=== PATIENT | male | born 1965 | race Caucasian/White ===

== ENCOUNTER 2021-12-04 20:17 | Inpatient (IN) ==
[2021-12-04 20:50] LABS: Basophils % 0.4 %; Eosinophils % 0.2 %; Hematocrit 45.2 % (37.5-50.1); Hemoglobin 13.7 g/dL (12.9-16.9); Immature Granulocytes % 0.5 % (0-4); Lymphocytes # 2.1 K/mcL (0.6-4.6); Mean Corpuscular HGB Conc 30.3 g/dL (31.6-35.5); Mean Corpuscular Hemoglobin 26.5 pg (28.0-33.3); Mean Corpuscular Volume 87.4 fL (83.0-100.0); Mean Platelet Volume 10.9 fL (9.4-12.4); Monocytes # 0.8 K/mcL (0.0-1.3); Monocytes % 7.1 %; Neutrophils # 7.9 K/mcL (1.6-8.9); Nucleated Red Blood Cells 0.3 /100 WBC (0); Platelet Count 282 K/mcL (140-400); Red Blood Count 5.17 M/mcL (4.19-5.50); Red Cell Distribution Width 18.6 % (11.5-14.5); Segmented Neutrophils % 72.8 %; White Blood Count 10.8 K/mcL (4.3-11.1)
[2021-12-04 20:58] LABS: INR 1.9; Prothrombin Time 21.4 Seconds (9.4-12.1)
[2021-12-04 21:00] LABS: Activated Partial Thrombo Time 42.3 Seconds (26.0-36.0)
[2021-12-04 21:06] LABS: Alanine Aminotransferase 28 Units/L (7-52); Albumin 3.2 g/dL (3.5-5.7); Albumin/Globulin Ratio 1.1 (1.1-2.2); Alkaline Phosphatase 313 Units/L (34-104); Aspartate Amino Transferase 30 Units/L (13-39); BUN/Creatinine Ratio 20 (6-26); Bilirubin,Total 2.3 mg/dL (0.3-1.0); Blood Urea Nitrogen 28 mg/dL (6-20); Carbon Dioxide 26 mEq/L (23-29); Chloride 98 mEq/L (98-107); Glucose 83 mg/dL (70-105); Magnesium 2.3 mg/dL (1.6-2.6); Osmolality,Calculated 287 (280-300); Potassium 5.3 mEq/L (3.5-5.1); Sodium 136 mEq/L (136-145); Total Protein 6.2 g/dL (6.4-8.9); eGFR For African Americans > 60 (> 60); eGFR For Non-African Americans 51 (> 60)
[2021-12-04 21:16] LABS: Troponin I 0.04 ng/mL (< 0.04)
[2021-12-04] MEDS ORDERED: Silver Sulfadiazine 50 GM TUBE TP ONE (22:54)
[2021-12-04] MEDS ORDERED: Furosemide 40 MG/4 ML VIAL IVP ONE (22:54)
[2021-12-05] MEDS ORDERED: Acetaminophen 325 MG TABLET PO PRN (02:01)
[2021-12-05] MEDS ORDERED: Melatonin 3 MG TABLET PO PRN (02:01)
[2021-12-05] MEDS ORDERED: Naloxone 0.4 MG/ML INJ IVP PRN (02:01)
[2021-12-05 03:36] LABS: INR 1.9; Prothrombin Time 21.5 Seconds (9.4-12.1)
[2021-12-05 03:41] LABS: Hematocrit 44.6 % (37.5-50.1); Hemoglobin 13.5 g/dL (12.9-16.9); Mean Corpuscular HGB Conc 30.3 g/dL (31.6-35.5); Mean Corpuscular Hemoglobin 26.3 pg (28.0-33.3); Mean Corpuscular Volume 86.8 fL (83.0-100.0); Mean Platelet Volume 11.3 fL (9.4-12.4); Platelet Count 311 K/mcL (140-400); Red Blood Count 5.14 M/mcL (4.19-5.50); Red Cell Distribution Width 18.7 % (11.5-14.5); White Blood Count 11.7 K/mcL (4.3-11.1)
[2021-12-05] MEDS ORDERED: *HR* LORazepam 0.5 MG TABLET PO PRN ×2 (04:13→13:45)
[2021-12-05 04:29] LABS: Albumin 3.2 g/dL (3.5-5.7); Albumin/Globulin Ratio 1.1 (1.1-2.2); Bilirubin,Total 2.5 mg/dL (0.3-1.0); Calcium 9.3 mg/dL (8.6-10.3); Chol/HDL Ratio 3.4 (0-4.9); Magnesium 2.3 mg/dL (1.6-2.6); Phosphorous 4.3 mg/dL (2.7-4.5); Potassium 5.3 mEq/L (3.5-5.1); Total Protein 6.2 g/dL (6.4-8.9)
[2021-12-05] MEDS: Ipratropium/Albuterol Neb 3 ML IH SCH ×3 (05:09→09:38)
[2021-12-05] MEDS ORDERED: SODIUM ZIRCONIUM CYCLOSILICATE 5 GM POWD.PACK PO ONE (05:14)
[2021-12-05] MEDS: Ondansetron 4 MG/2 ML VIAL IVP PRN ×2 (07:40→22:32)
[2021-12-05] MEDS ORDERED: Furosemide 40 MG/4 ML VIAL IVP SCH (09:00)
[2021-12-05] MEDS: Budesonide/Formoterol 160/4.5 1 PUFF INH IH SCH ×2 (09:38→22:30)
[2021-12-05] MEDS ORDERED: D5% in Water 1,000 ML IVC PRN (10:42)
[2021-12-05] MEDS ORDERED: *HR* Dextrose 50 % in Water (Syg) 50 ML SYRINGE IVP PRN (10:42)
[2021-12-05] MEDS ORDERED: Dextrose Gel 15 GM/37.5 ML TUBE PO PRN ×2 (10:42)
[2021-12-05] MEDS ORDERED: Gabapentin 400 MG CAPSULE PO PRN (13:45)
[2021-12-05] MEDS ORDERED: Perflutren Lipid Microsphere 1.3 ML in 0.9 % Sodium Chloride 8.7 ML IVP PRN (13:47)
[2021-12-05] MEDS ORDERED: Famotidine 20 MG TABLET PO SCH (14:00)
[2021-12-05] MEDS ORDERED: Metoprolol XL (24 HR) Succ 25 MG TAB.ER.24H PO SCH (14:00)
[2021-12-05] MEDS ORDERED: Acetaminophen/Butalbital/CaffeineTABLET PO PRN (14:06)
[2021-12-05] MEDS ORDERED: haloperidoL 1 MG TABLET PO PRN (14:11)
[2021-12-05] MEDS ORDERED: Ipratropium/Albuterol Neb 3 ML IH PRN (15:23)
[2021-12-05] MEDS: hydrOXYzine pamoate 25 MG CAPSULE PO SCH ×2 (17:47→20:48)
[2021-12-05] MEDS: Furosemide 20 MG/2 ML VIAL IVP SCH (17:48)
[2021-12-05] MEDS ORDERED: Warfarin perPT PO PRN (18:00)
[2021-12-05] MEDS ORDERED: *HR* Warfarin 3 MG TABLET PO ONE (18:00)
[2021-12-05] MEDS: Piperacillin/Tazobactam 3.375 GM in 0.9 % Sodium Chloride Mini Bag 100 ML IVPB SCH (18:07)
[2021-12-05] MEDS ORDERED: Insulin LISPRO 300 UNITS/3 ML VIAL SUBQ SCH (21:00)
[2021-12-06] MEDS: Furosemide 20 MG/2 ML VIAL IVP SCH (00:56)
[2021-12-06] MEDS: Piperacillin/Tazobactam 3.375 GM in 0.9 % Sodium Chloride Mini Bag 100 ML IVPB SCH (00:56)
[2021-12-06 02:37] LABS: ABG Base Excess -6 mEq/L (-2 to 3); ABG HCO3 21 mEq/L (21-27); ABG Oxygen Saturation 97 % (95-98); ABG PCO2 43 mmHg (35-45); ABG PH 7.29 pH Units (7.32-7.45); ABG PO2 99 mmHg (85-104); ABG TCO2 22 mEq/L (20-26); Blood Gas Modality ASSIST CONTROL; Blood Gas VT 500 cc
[2021-12-06 02:50] VITALS: RESP 16
[2021-12-06 04:33] VITALS: O2SAT 100
[2021-12-06] MEDS ORDERED: *HR* Rocuronium Bromide 50 MG/5 ML VIAL IVP ONE (05:51)
[2021-12-06] MEDS ORDERED: *HR* Etomidate 20 MG/10 ML AMPUL IVP ONE (05:51)
[2021-12-06 06:25] VITALS: BP 116/81; PULSE 119; TEMP 96.6
[2021-12-06] MEDS ORDERED: Insulin LISPRO 300 UNITS/3 ML VIAL SUBQ SCH (07:30)
[2021-12-06] MEDS: Budesonide/Formoterol 160/4.5 1 PUFF INH IH SCH (08:58)
[2021-12-06] MEDS ORDERED: NON-FORMULARY MEDICATION 1 EACH EACH (Fluticasone Propionate [Flovent Diskus] 50 MCG Blst. IH SCH (09:00)
[2021-12-06] MEDS ORDERED: Loratadine 10 MG TABLET PO SCH (09:00)
[2021-12-06 10:30] LABS: Adenovirus Not Detected (Not Detect); Bordetella Pertussis Not Detected (Not Detect); Chlamydophila pneumoniae Not Detected (Not Detect); Coronavirus 229E Not Detected (Not Detect); Coronavirus HKU1 Not Detected (Not Detect); Coronavirus NL63 Not Detected (Not Detect); Coronavirus OC43 Not Detected (Not Detect); Human Metapneumovirus Not Detected (Not Detect); Human Rhinovirus/Enterovirus Not Detected (Not Detect); Influenza A Subtype 2009 H1 Not Detected (Not Detect); Influenza B Not Detected (Not Detect); Mycoplasma pneumoniae Not Detected (Not Detect); Parainfluenza Virus 1 Not Detected (Not Detect); Parainfluenza Virus 2 Not Detected (Not Detect); Parainfluenza Virus 3 Not Detected (Not Detect); Parainfluenza Virus 4 Not Detected (Not Detect); Respiratory Syncytial Virus Not Detected (Not Detect); SARS-CoV-2 Not Detected (Not Detect)
== END 2021-12-06 05:52 | disposition short-term general hospital (02) | DRG 871 ==
LOC: INPPIK 20:17 → EMEROOPIK 20:17 → INPPIK 12-05 02:20
PROVIDERS: ADMIT Internal Medicine; ATTEND Family Medicine